=== PATIENT | female | born 1990 | race Caucasian/White ===

== ENCOUNTER 2016-05-01 10:47 | Outpatient (CLI) | payer OTHER ==
[2016-05-01 12:03] LABS: #Eosinphils 0.2 thou/uL (0.0-0.7); #Lymphocytes 1.2 thou/uL (1.20-3.40); #Monocytes 0.5 thou/uL (0.11-0.59); #Neutrophils 4.5 thou/uL (1.40-6.50); %Basophils 0.4 % (0.0-1.0); %Eosinophils 2.9 % (0.0-10.0); %Lymphocytes 19.1 % (21.0-51.0); %Monocytes 7.3 % (0.0-10.0); Hematocrit 38.3 % (36.0-47.0); Red Blood Cell (RBC) Count 4.22 mill/uL (4.20-5.40); White Blood Cell (WBC) Count 6.3 thou/uL (4.8-10.8)
== END 2016-05-01 10:48 | disposition home or self-care (01) ==
LOC: NAV LAB 10:47
PROVIDERS: ATTEND Family Medicine
DX: Z34.80 Encounter for supervision of other normal pregnancy, unspecified trimester (principal)
CPT/HCPCS: 80055; 84439; 84443; 87389

== ENCOUNTER 2016-09-07 09:35 | Outpatient (CLI) | payer OTHER | END 2016-09-07 09:36 | disposition home or self-care (01) | LOC: NAV LAB 09:35 | PROVIDERS: ATTEND Family Medicine | DX: L29.9 Pruritus, unspecified (principal) | CPT/HCPCS: 36415; 82239 ==